=== PATIENT | female | born 1940 | race Caucasian/White ===

== ENCOUNTER 2022-02-10 23:26 | Observation (INO) ==
--- NOTE | 2022-02-10 23:52 | Emergency Department Note ---
History of Present Illness General Chief complaint: Chest Pain Stated complaint: HEART/CHEST PAIN Time Seen by Provider: 02/10/22 23:42 History of Present Illness Maximum Pain Intensity: 5 81-year-old female presents emergency department with heart pain that started earlier today. Patient states that the pain is located in the left side of her chest is nonradiating there is no associated shortness of breath nausea vomiting diaphoresis. Patient has taken aspirin prior to arrival. Patient states the pain is located in her heart is intermittent there is no significant shortness of breath. Patient states that she has a chronic cough which is unchanged. Patient denies hemoptysis. Patient denies any recent infections pneumonia or chest trauma. There are no current other mitigating or alleviating factors Home Medications Medication Instructions Recorded Confirmed Type metoprolol succinate 25 mg 25 mg PO QAM 10/04/19 02/11/22 History tablet,extended release 24 hr rosuvastatin 5 mg tablet 2.5 mg PO .3-4XSWEEK 10/04/19 02/11/22 History wheat dextrin 3 gram/3.5 gram oral 0 g PO DAILY PRN 10/04/19 02/11/22 History powder packet (Benefiber Clear Sugar Free(dextrin)) aspirin 81 mg tablet 81 mg PO DAILY 02/11/22 02/11/22 History chlorthalidone 25 mg tablet 25 mg PO QAM 02/11/22 02/11/22 History Allergies Allergy/AdvReac Type Severity Reaction Status Date / Time lisinopril AdvReac Unknown COUGH Verified 02/11/22 02:11 pravastatin AdvReac Unknown TIRED AND Verified 02/11/22 02:11 BODY ACHES Past Med/Surg History Medical History (Updated 02/11/22 @ 03:12 by Cipriano French DO) Hyperlipidemia Hypertension Osteoarthritis of left knee Surgical History No significant past surgical history Social History Smoking Status: Former smoker Preferred Language: German marital status: Current Living Situation: Spouse current occupational status: retired Feels Safe at Home: Yes Review of Systems A total of 10 systems reviewed and were otherwise negative Constitutional: no weakness Respiratory: + cough Cardiovascular: + chest pain Gastrointestinal: no abdominal pain Physical Exam Vital Signs Vital Signs - 24 hr 02/10/22 23:31 02/10/22 23:43 02/10/22 23:46 Temperature 36.9 C Temperature Source Temporal Artery Scan Pulse Rate 54 L 52 L 54 L Pulse Rate [Finger] Pulse Rate from SpO2 Sensor 54 L Pulse Rhythm [Finger] Respiratory Rate 16 19 21 Respiratory Effort / Characteristics Non-Labored Spontaneous Respiratory Depth Normal Respiratory Pattern Regular Blood Pressure 170/114 H 143/85 H Blood Pressure [Left Arm] Blood Pressure Mean 132 104 Blood Pressure Mean [Left Arm] Pulse Oximetry 94 94 Oxygen Delivery Method Room Air Sepsis Recent Fever Within 48 Hours No Sepsis New/Unexplained Change in Mental Status N/A Sepsis Action Taken by Nursing No Action Required 02/11/22 00:03 02/11/22 00:06 02/11/22 00:30 Temperature Temperature Source Oral Pulse Rate 46 L 48 L Pulse Rate [Finger] 49 L Pulse Rate from SpO2 Sensor 47 L 48 L Pulse Rhythm [Finger] Regular Respiratory Rate 15 14 17 Respiratory Effort / Characteristics Respiratory Depth Respiratory Pattern Blood Pressure Blood Pressure [Left Arm] 164/68 H Blood Pressure Mean Blood Pressure Mean [Left Arm] 100 Pulse Oximetry 94 94 92 Oxygen Delivery Method Room Air Sepsis Recent Fever Within 48 Hours Sepsis New/Unexplained Change in Mental Status Sepsis Action Taken by Nursing 02/11/22 02:21 Temperature Temperature Source Pulse Rate Pulse Rate [Finger] 74 Pulse Rate from SpO2 Sensor Pulse Rhythm [Finger] Respiratory Rate 14 Respiratory Effort / Characteristics Respiratory Depth Respiratory Pattern Blood Pressure Blood Pressure [Left Arm] 161/73 H Blood Pressure Mean Blood Pressure Mean [Left Arm] 102 Pulse Oximetry 95 Oxygen Delivery Method Sepsis Recent Fever Within 48 Hours Sepsis New/Unexplained Change in Mental Status Sepsis Action Taken by Nursing VITAL SIGNS - Vital signs and nursing notes were reviewed. GENERAL --81 year-old female who is in no acute distress. Communicates well with provider and answers questions appropriately. SKIN - Without rashes. HEAD - NC/AT. EYES - PERRL with EOMI bilaterally. Sclera anicteric. Palpebral conjunctiva pink and moist with no injection noted. EARS - No deformities of external structures noted on gross examination bilaterally. N NOSE - Midline and without cyanosis. No epistaxis or purulent drainage noted. Septum midline without deviation or septal hematoma noted. MOUTH/OROPHARYNX - Without perioral cyanosis. Buccal mucosa pink and moist NECK - Neck with FROM. Supple to palpation.. LUNGS - Chest wall symmetric without accessory muscle use, intercostals retractions, or central cyanosis. Normal vesicular breath sounds CTA B/L. No wheezes, rales, or rhonchi appreciated. CARDIAC - RRR with S1/S2. No murmur, rubs, or gallops appreciated. ABDOMEN - Abdominal contour soft without pulsations or visible masses. BS normoactive all four quadrants. No tenderness, palpable masses, hepatosplenomegaly, or ascites noted. EXTREMITIES - No clubbing or peripheral cyanosis. +5/5 strength noted in UE/LE bilaterally. NEUROLOGIC - Cranial nerves II through XII grossly intact. PSYCH - A&Ox3 and cooperates fully with examiner. Pt is very pleasant and interacts well with examiner. Course Reevaluation(s) Reevaluation #1: Patient is currently resting in no distress no chest pain at 12:40 AM. Patient has an elevated D-dimer. I have ordered a CT angio of her chest. Reevaluation #2: Patient's CT is negative for PE, 2:35 AM [facility] Administered Medications Discontinued Medications Ioversol (Optiray 320 125ml) 125 ml IV ONCE ONE Stop: 02/11/22 01:35 Last Admin: 02/11/22 01:34 Dose: 90 ml Documented by: [id number] Nitroglycerin (Nitroglycerin Sl 0.4 Mg/Tab Tab) Confirm Administered Dose 0.4 mg .ROUTE .STK-MED ONE Stop: 02/11/22 03:04 Last Admin: 02/11/22 03:06 Dose: 0.4 mg Documented by: [id number] Medical Decision Making Medical Records Attestation: I reviewed the patient's medical records. Laboratory Data Attestation: I reviewed the patient's lab results. Result diagrams: 02/10/22 23:47 02/10/22 23:47 Lab Results 02/10/22 02/10/22 02/10/22 Range/Units 23:47 23:47 23:47 WBC 7.30 (4.8-10.8) K/uL RBC 4.50 (4.2-5.4) M/uL Hgb 12.8 (12.0-16.0) g/dL Hct 38.9 (37-47) % MCV 86.4 (80-100) fL MCH 28.4 (25-34) pg MCHC 32.9 (32-36) g/dL RDW Std Deviation 40.5 (36.4-46.3) fL RDW Coeff of Kristi 12.7 (11.5-14.5) % Plt Count 258 (130-400) K/uL MPV 9.6 (7.4-10.4) fL Immature Gran % (Auto) 0.3 % Neut % (Auto) 60.2 % Lymph % (Auto) 23.4 % [place] % (Auto) 9.3 % Eos % (Auto) 6.4 % Baso % (Auto) 0.4 % Neut # (Auto) 4.39 (1.4-6.5) K/uL Lymph # (Auto) 1.71 (1.2-3.4) K/uL [place] # (Auto) 0.68 H (0.11-0.59) K/uL Eos # (Auto) 0.47 (0-0.5) K/uL Baso # (Auto) 0.03 (0-0.2) K/uL Immature Gran # (Auto) 0.02 (0.00-0.02) K/uL D-Dimer 1120 H* (0-500) ug/L FEU Sodium 139 (136-145) mmol/L Potassium 3.9 (3.5-5.1) mmol/L Chloride 103 (98-107) mmol/L Carbon Dioxide 27 (21-32) mmol/L Anion Gap 9 (3-11) BUN 28 H (6-23) mg/dl Creatinine 1.12 (0.6-1.2) mg/dl Est Cr Clr Drug Dosing 41.2 ml/min Est GFR ( Amer) 53.7 ml/min Est GFR (Non-Af Amer) 46.4 ml/min BUN/Creatinine Ratio 25.0 H (10-20) Glucose 104 H (70-99(Fasting)) mg/dl Calcium 8.7 (8.5-10.1) mg/dl Total Bilirubin 0.3 (0.2-1.0) mg/dl AST 17 (13-39) U/L ALT 11 (7-52) U/L Alkaline Phosphatase 70 (34-104) U/L Troponin I 0.04 (0-0.04) ng/ml Total Protein 6.9 (6.0-8.3) gm/dl Albumin 4.0 (3.4-5.0) gm/dl Globulin 2.9 (2.5-4.0) gm/dl Albumin/Globulin Ratio 1.4 (0.9-2) Lipase 113 H (11-82) U/L SARS-CoV-2, RNA, NAAT (NEGATIVE) 02/11/22 Range/Units 02:25 WBC (4.8-10.8) K/uL RBC (4.2-5.4) M/uL Hgb (12.0-16.0) g/dL Hct (37-47) % MCV (80-100) fL MCH (25-34) pg MCHC (32-36) g/dL RDW Std Deviation (36.4-46.3) fL RDW Coeff of Kristi (11.5-14.5) % Plt Count (130-400) K/uL MPV (7.4-10.4) fL Immature Gran % (Auto) % Neut % (Auto) % Lymph % (Auto) % [place] % (Auto) % Eos % (Auto) % Baso % (Auto) % Neut # (Auto) (1.4-6.5) K/uL Lymph # (Auto) (1.2-3.4) K/uL [place] # (Auto) (0.11-0.59) K/uL Eos # (Auto) (0-0.5) K/uL Baso # (Auto) (0-0.2) K/uL Immature Gran # (Auto) (0.00-0.02) K/uL D-Dimer (0-500) ug/L FEU Sodium (136-145) mmol/L Potassium (3.5-5.1) mmol/L Chloride (98-107) mmol/L Carbon Dioxide (21-32) mmol/L Anion Gap (3-11) BUN (6-23) mg/dl Creatinine (0.6-1.2) mg/dl Est Cr Clr Drug Dosing ml/min Est GFR ( Amer) ml/min Est GFR (Non-Af Amer) ml/min BUN/Creatinine Ratio (10-20) Glucose (70-99(Fasting)) mg/dl Calcium (8.5-10.1) mg/dl Total Bilirubin (0.2-1.0) mg/dl AST (13-39) U/L ALT (7-52) U/L Alkaline Phosphatase (34-104) U/L Troponin I (0-0.04) ng/ml Total Protein (6.0-8.3) gm/dl Albumin (3.4-5.0) gm/dl Globulin (2.5-4.0) gm/dl Albumin/Globulin Ratio (0.9-2) Lipase (11-82) U/L SARS-CoV-2, RNA, NAAT NEGATIVE (NEGATIVE) Imaging Data Attestation: I personally reviewed and interpreted this imaging study as follows: My Impression: Chest x-ray interpreted by me negative for infiltrate normal mediastinum no pneumothorax Radiologist's Impression: CTACHEST: Respiratorymotion limits evaluation of smaller subsegmental branches. No evidence of pulmonaryembolismwithin the pulmonaryoutflowtract or proximal v essels. Dependent atelectasis. Mild peripheral interstitial opacities. Cardiomegaly. Hiatal hernia. Radiologist: eBn Estrada MD ECG Data Attestation: I personally reviewed and interpreted this ECG as follows: Additional Comments: EKG interpreted by me sinus bradycardia rate of 52 incomplete right bundle branch block no obvious ST segment elevation or depression normal axis MDM Narrative Medical decision making differential diagnosis includes angina, unstable angina, acute NE, pulmonary embolism, pneumonia, pleurisy Impression & Plan Chest pain Discharge Plan Visit Data Chief Complaint: Chest Pain Stated Complaint: HEART/CHEST PAIN ED Provider: Cipriano French Discharge Problem: Chest pain Patient Disposition: Being Evaluated by Hospitalist Forms Stand Alone Forms: My [facility] Prescriptions Prescriptions: No Action metoprolol succinate 25 mg tablet extended release 24 hr 25 mg PO QAM RF: 0 rosuvastatin 5 mg tablet 2.5 mg PO .3-4XSWEEK RF: 0 Benefiber Clear SF (dextrin) 3 gram/3.5 gram Powder In Packet 0 g PO DAILY PRN (Reason: Constipation) RF: 0 Low-Dose Aspirin 81 mg Tablet 81 mg PO DAILY RF: 0 chlorthalidone 25 mg tablet 25 mg PO QAM RF: 0 Referrals Referrals: Yessica Cooper DO [Primary Care Provider] -
[2022-02-10 23:54] LABS: Basophils # (auto) 0.03 K/uL (0-0.2); Basophils % (auto) 0.4 %; Eosinophils # (auto) 0.47 K/uL (0-0.5); Eosinophils % (auto) 6.4 %; Hematocrit (blood only) 38.9 % (37-47); Hemoglobin 12.8 g/dL (12.0-16.0); Immature Granulocytes # (auto) 0.02 K/uL (0.00-0.02); Immature Granulocytes % (auto) 0.3 %; Lymphocytes # (auto) 1.71 K/uL (1.2-3.4); Lymphocytes % (auto) 23.4 %; Mean Corpuscular Hemoglobin 28.4 pg (25-34); Mean Corpuscular Hgb Conc 32.9 g/dL (32-36); Mean Corpuscular Volume 86.4 fL (80-100); Mean Platelet Volume 9.6 fL (7.4-10.4); Monocytes # (auto) 0.68 K/uL (0.11-0.59); Monocytes % (auto) 9.3 %; Neutrophils # (auto) 4.39 K/uL (1.4-6.5); Neutrophils % (auto) 60.2 %; Platelet Count 258 K/uL (130-400); RDW Coefficient of Variation 12.7 % (11.5-14.5); RDW Standard Deviation 40.5 fL (36.4-46.3)
[2022-02-11 00:22] LABS: Troponin I 0.04 ng/ml (0-0.04)
[2022-02-11 00:29] LABS: D Dimer 1120 ug/L FEU (0-500)
[2022-02-11 00:46] LABS: Albumin Globulin Ratio 1.4 (0.9-2); Bilirubin,Total 0.3 mg/dl (0.2-1.0); Calcium 8.7 mg/dl (8.5-10.1); Creatinine Clr Calc Pharmacy 41.2 ml/min; Est GFR (African American) 53.7 ml/min; Est GFR (Non-African American) 46.4 ml/min; Globulin 2.9 gm/dl (2.5-4.0); Potassium 3.9 mmol/L (3.5-5.1); Total Protein 6.9 gm/dl (6.0-8.3)
[2022-02-11] MEDS ORDERED: OPTIRAY 320 125ml IV ONE (01:34)
[2022-02-11] MEDS ORDERED: METOPROLOL SUCC 25MG EXT REL TAB PO STA (02:34)
[2022-02-11] MEDS ORDERED: NITROGLYCERIN SL 0.4 MG/TAB TAB SL STA (02:57)
[2022-02-11] MEDS ORDERED: LOSARTAN POTASSIUM 25 MG TAB PO STA (02:58)
[2022-02-11] MEDS ORDERED: NITROGLYCERIN SL 0.4 MG/TAB TAB ONE (03:03)
[2022-02-11 03:16] LABS: Partial Thromboplastin Ratio 0.9; Partial Thromboplastin Time 25.4 Seconds (21.0-31.0)
--- NOTE | 2022-02-11 03:18 | History & Physical Report ---
Date of Service February 11, 2022 Assessment & Plan (1) Chest pain: Plan: Possibly from uncontrolled hypertension secondary to anxiety from personal stressors. Rule out ACS given nitro relief and risk factors for ischemic heart disease Abnormal TSH, possible hypothyroidism hyperlipidemia on statin Rx prediabetes, hemoglobin A1c of 6.02 September 2021 OBS PCU Add losartan to her regimen given episodic bradycardia on low-dose maintenance beta-inocente home Rx Anxiolytic as needed Continue home aspirin for CAD prevention until ACS ruled out Follow troponin TTE, Cardiology consult Re: Chest pain N.p.o. until patient seen by cardiology in a.m. anticipation of procedure Follow TFTs Update hemoglobin A1c DVT prophylaxis. Lovenox subcu Full code Text document was generated using [email or web address] voice recognition software. It may contain grammatical or spelling errors. Kindly contact undersigned for clarification of any documentation item in question. History of Present Illness Chief Complaint: Chest pain Primary Care Provider: Yessica Cooper, History obtained from patient, family, and records. Medical history significant for hypertension, hyperlipidemia, GERD, prediabetes, past tobacco abuse. Yesterday morning, patient noted achy left-sided chest pain, nonradiating and without other associated symptoms. Chronic cough symptoms which patient attributes to sinus congestion/allergies. Admits to a lot of family stressors. Patient does not check blood pressure at home. No headache complaints. Denies dietary indiscretion. No OTC NSAID intake. Patient brought to ER by due to persistent chest discomfort. SBP 190s at the ER at one point. Chest pain improved with nitroglycerin administration at the ER. Medical History as above Surgical History : Cataract surgeries, vaginal hysterectomy, oophorectomy, tonsillectomy, cholecystectomy, pelvic laparoscopy Family History : Heart disease, throat cancer, stroke Personal/Social history : Past tobacco abuse, no EtOH intake, retired hospital employee Allergies Allergy/AdvReac Type Severity Reaction Status Date / Time lisinopril AdvReac Unknown COUGH Verified 02/11/22 02:11 pravastatin AdvReac Unknown TIRED AND Verified 02/11/22 02:11 BODY ACHES Home Medications Medication Instructions Recorded Confirmed Type metoprolol succinate 25 mg 25 mg PO QAM 10/04/19 02/11/22 History tablet,extended release 24 hr rosuvastatin 5 mg tablet 2.5 mg PO .3-4XSWEEK 10/04/19 02/11/22 History wheat dextrin 3 gram/3.5 gram oral 0 g PO DAILY PRN 10/04/19 02/11/22 History powder packet (Benefiber Clear Sugar Free(dextrin)) aspirin 81 mg tablet 81 mg PO DAILY 02/11/22 02/11/22 History chlorthalidone 25 mg tablet 25 mg PO QAM 02/11/22 02/11/22 History Past Med/Surg History Medical History (Updated 02/11/22 @ 03:12 by Cipriano French DO) Hyperlipidemia Hypertension Osteoarthritis of left knee Surgical History No significant past surgical history Social History Smoking Status: Former smoker Second Hand Exposure: Yes; Do You Dip or Chew Tobacco: No; Hx Alcohol Use: No Hx Substance Use: No Preferred Language: Greenlandic Communication Ability: Effective Flash Oven Operator Required: No Beliefs That Will Affect Care: Sabianist Sabianist Beliefs: Spiritism marital status: Current Living Situation: Spouse current occupational status: retired Other Information That Helps Us Care for You: No Feels Safe at Home: Yes Safety Concerns: Feels Safe At This Time Assistive Devices: Denture - Upper, Denture - Lower and Glasses Review of Systems Review of Systems: As per HPI, all 10 systems reviewed, all other ROS negative Physical Exam Physical Exam: GENERAL: Comfortable, pleasant, slightly hard of hearing, obese, no respiratory distress SKIN: Normal color, warm HEENT: [place] palpebral conjunctivae, no ptosis, moist buccal mucosa NECK : Supple, no tenderness CHEST : CTA, no tenderness HEART : Bradycardic, no obvious murmurs ABDOMEN: Some distention, nontender EXTREMITIES : Minimal LE swelling, no LE tenderness, no other conspicuous deformities noted NEUROLOGIC : Coherent, no facial asymmetry, no other gross focality Results & Data Results & Data ([facility]) Vital Signs (Past 12 Hours) Vital Signs Temp Pulse Pulse Resp BP BP Pulse Ox 02/11/22 02:21 74 14 161/73 H 95 02/11/22 00:30 48 L 17 92 02/11/22 00:06 49 L 14 164/68 H 94 02/11/22 00:03 46 L 15 94 02/10/22 23:46 54 L 21 143/85 H 94 02/10/22 23:43 52 L 19 02/10/22 23:31 36.9 C 54 L 16 170/114 H 94 Laboratory Results Laboratory Results WBC 7.30 K/uL (4.8-10.8) 02/10/22 23:47 RBC 4.50 M/uL (4.2-5.4) 02/10/22 23:47 Hgb 12.8 g/dL (12.0-16.0) 02/10/22 23:47 Hct 38.9 % (37-47) 02/10/22 23:47 MCV 86.4 fL (80-100) 02/10/22 23:47 MCH 28.4 pg (25-34) 02/10/22 23:47 MCHC 32.9 g/dL (32-36) 02/10/22 23:47 RDW Std Deviation 40.5 fL (36.4-46.3) 02/10/22 23:47 RDW Coeff of Kristi 12.7 % (11.5-14.5) 02/10/22 23:47 Plt Count 258 K/uL (130-400) 02/10/22 23:47 MPV 9.6 fL (7.4-10.4) 02/10/22 23:47 Immature Gran % (Auto) 0.3 % 02/10/22 23:47 Neut % (Auto) 60.2 % 02/10/22 23:47 Lymph % (Auto) 23.4 % 02/10/22 23:47 [place] % (Auto) 9.3 % 02/10/22 23:47 Eos % (Auto) 6.4 % 02/10/22 23:47 Baso % (Auto) 0.4 % 02/10/22 23:47 Neut # (Auto) 4.39 K/uL (1.4-6.5) 02/10/22 23:47 Lymph # (Auto) 1.71 K/uL (1.2-3.4) 02/10/22 23:47 [place] # (Auto) 0.68 K/uL (0.11-0.59) H 02/10/22 23:47 Eos # (Auto) 0.47 K/uL (0-0.5) 02/10/22 23:47 Baso # (Auto) 0.03 K/uL (0-0.2) 02/10/22 23:47 Immature Gran # (Auto) 0.02 K/uL (0.00-0.02) 02/10/22 23:47 APTT 25.4 Seconds (21.0-31.0) 02/11/22 02:58 PTT Ratio 0.9 02/11/22 02:58 D-Dimer 1120 ug/L FEU (0-500) H* 02/10/22 23:47 Sodium 139 mmol/L (136-145) 02/10/22 23:47 Potassium 3.9 mmol/L (3.5-5.1) 02/10/22 23:47 Chloride 103 mmol/L (98-107) 02/10/22 23:47 Carbon Dioxide 27 mmol/L (21-32) 02/10/22 23:47 Anion Gap 9 (3-11) 02/10/22 23:47 BUN 28 mg/dl (6-23) H 02/10/22 23:47 Creatinine 1.12 mg/dl (0.6-1.2) 02/10/22 23:47 Est Cr Clr Drug Dosing 41.2 ml/min 02/10/22 23:47 Est GFR ( Amer) 53.7 ml/min 02/10/22 23:47 Est GFR (Non-Af Amer) 46.4 ml/min 02/10/22 23:47 BUN/Creatinine Ratio 25.0 (10-20) H 02/10/22 23:47 Glucose 104 mg/dl (70-99(Fasting)) H 02/10/22 23:47 Calcium 8.7 mg/dl (8.5-10.1) 02/10/22 23:47 Total Bilirubin 0.3 mg/dl (0.2-1.0) 02/10/22 23:47 AST 17 U/L (13-39) 02/10/22 23:47 ALT 11 U/L (7-52) 02/10/22 23:47 Alkaline Phosphatase 70 U/L (34-104) 02/10/22 23:47 Troponin I 0.04 ng/ml (0-0.04) 02/10/22 23:47 Total Protein 6.9 gm/dl (6.0-8.3) 02/10/22 23:47 Albumin 4.0 gm/dl (3.4-5.0) 02/10/22 23:47 Globulin 2.9 gm/dl (2.5-4.0) 02/10/22 23:47 Albumin/Globulin Ratio 1.4 (0.9-2) 02/10/22 23:47 Lipase 113 U/L (11-82) H 02/10/22 23:47 SARS-CoV-2, RNA, NAAT NEGATIVE (NEGATIVE) 02/11/22 02:[address] chest initial read: Respiratorymotion limits evaluation of smaller subsegmental branches. No evidence of pulmonaryembolismwithin the pulmonaryoutflowtract or proximal vessels. Dependent atelectasis. Mild peripheral interstitial opacities. Cardiomegaly. Hiatal hernia. EKG as per my interpretation: Rate 50, sinus bradycardia, normal axis, incomplete RBBB, T wave abnormality septal leads (1) Chest pain Chest pain type: unspecified Qualified Code(s): R07.9 - Chest pain, unspecified
[2022-02-11 03:33] LABS: Troponin I 0.04 ng/ml (0-0.04)
[2022-02-11 03:34] LABS: Magnesium 1.6 mg/dl (1.7-2.4)
[2022-02-11] MEDS ORDERED: MAGNESIUM SULFATE / D5W 1 GM/100 ML BAG IV ONE ×2 (03:49→09:30)
[2022-02-11] MEDS ORDERED: LACTATED RINGER'S 1,000 ML IV ONE (03:56)
[2022-02-11 04:48] LABS: Thyroid Stimulating Hormone 8.718 uIu/ml (0.300-4.500)
[2022-02-11] MEDS ORDERED: ACETAMINOPHEN 325 MG TAB PO PRN (05:45)
[2022-02-11] MEDS ORDERED: NITROGLYCERIN SL 0.4 MG/TAB TAB SL PRN (05:45)
[2022-02-11] MEDS ORDERED: PROMETHAZINE HCL 12.5 MG in SODIUM CHLORIDE 0.9% 50 ML IV PRN (05:45)
[2022-02-11] MEDS ORDERED: MoRPHine SULFATE 2 MG/ML CARP IV PRN (05:45)
[2022-02-11] MEDS ORDERED: LORazepam 2 MG/1 ML VIAL IV PRN (05:45)
[2022-02-11] MEDS ORDERED: traMADol HCL 50 MG TABLET PO PRN (05:45)
[2022-02-11 06:02] LABS: T4 Free Thyroxine 0.77 ng/dl (0.61-1.60)
--- NOTE | 2022-02-11 06:44 | XRay Report ---
XR chest 1V portable HISTORY: 81 years-old Female Chest Pain acute atypical chest pain COMPARISON: CTA chest of same day TECHNIQUE: Portable AP view of the chest FINDINGS: The cardiac silhouette is enlarged. Ill-defined airspace opacities of the right upper lobe. Mild inte rstitial coarsening of the lung bases suggest atelectasis. No pneumothorax, pleural effusion or overt pulmonary edema. Degenerative changes of the shoulders and spine. IMPRESSION: 1. Cardiac megaly without pulmonary edema. 2. Ill-defined airspace opacities of the right upper lobe are likely infectious or inflammatory. ACT 112: Negative or not required by law. The above report was generated using voice recognition software. It may contain grammatical, syntax o r spelling errors. Electronically signed by: Vinny Gilliland M.D. 02/11/2022 6:43 AM
--- NOTE | 2022-02-11 07:20 | CT Scan Report ---
CT ANGIOGRAPHY OF THE CHEST, PULMONARY EMBOLUS PROTOCOL CLINICAL HISTORY: Shortness of breath. Atypical chest pain. COMPARISON STUDY: Chest radiograph February 10, 2022. TECHNIQUE: Following IV administration of 90 mL of Optiray, helical axial images of the chest were ob tained utilizing the pulmonary embolus protocol. Maximal intensity projections and sagittal and fernie nal reformats were viewed on an independent 3D workstation. IV contrast was administered without com plication. Automated exposure control was utilized for the study. A dose lowering technique was uti lized adhering to the principles of ALARA. CT DOSE: 324.51 mGy.cm FINDINGS: No pulmonary emboli are identified. There is no thoracic aortic dissection. Mild cardiomeg ayaz is noted. There is no pericardial effusion. No enlarged axillary, mediastinal or hilar lymph node s are present. There is moderate coronary artery calcification. No pneumothorax or pleural effusion. Note is made of several small peripheral airspace opacities within the right upper lobe. There is mil d subpleural peripheral groundglass opacity within the lungs. Mild mosaic attenuation is noted. There is no consolidation. Central airways are patent. No acute fracture or suspicious lesion within the v isualized bony thorax is noted. Small hiatal hernia is present. Visualized portions of the upper abdo men are unremarkable. IMPRESSION: 1. No pulmonary emboli identified. 2. Scattered small airspace opacities within the right upper lobe and mild subpleural groundglass opa cities within the lungs. The findings are nonspecific but may favor an infectious process. 3. Mild mosaic attenuation within the lungs. This may reflect air trapping. 4. Cardiomegaly. 5. Small hiatal hernia. ACT 112: Negative or not required by law. Electronically signed by: Ji Sheridan M.D. 02/11/2022 7:18 AM
[2022-02-11 08:38] LABS: Estimated Average Glucose 137 mg/dl; Hemoglobin A1C 6.4 % (4.5-5.6)
[2022-02-11] MEDS ORDERED: METOPROLOL SUCC 25MG EXT REL TAB PO SCH (09:00)
[2022-02-11] MEDS ORDERED: ENOXAPARIN INJ 40 MG/0.4 ML SYR SQ SCH (09:00)
[2022-02-11] MEDS ORDERED: ASPIRIN 81 MG ECTAB PO SCH (09:00)
--- NOTE | 2022-02-11 09:33 | Cardiology Consultation ---
Date of Consultation February 11, 2022 Assessment & Plan (1) Chest pain at rest: (2) Hypertensive urgency: (3) Dyslipidemia: (4) HTN (hypertension): (5) Bradycardia: Atypical chest pain. Troponin negative. EKG without acute changes. Resting echocardiography pending. Suspect multifactorial etiology - hypertensive urgency secondary to recent significant stressors, possible GERD component. Patient does have multiple risk factors (hypertension, dyslipidemia, former tobacco use, prediabetes, obesity, sedentary state) with moderate coronary artery calcification noted on chest CT this admission. RECOMMENDATIONS: Await resting echocardiography Outpatient exercise stress testing if resting echocardiography is OK, after appropriate blood pressure control. Lexiscan declined. Would avoid DSE due to BP. Agree with reduction of metoprolol dosing due to mild asymptomatic bradycardia. Agree with addition of losartan; titrate as needed for additional blood pressure control If blood pressure remains elevated despite the above, add low-dose amlodipine next for the isolated systolic hypertension Increase rosuvastatin to daily, targeting an optimal LDL cholesterol goal of less than 70 mg/deciliter. Continue primary prevention aspirin 81 mg/day Supervising Physician Co-Signing Physician Notes I have seen and examined the patient. I reviewed her echocardiogram well it was being completed in the room. I reviewed the medical record and discussed the case with Mr. Esparza. I agree with his plan as outlined above. The patient requires no additional in-hospital cardiac testing and can be discharged from cardiology standpoint. History of Present Illness Reason for Consultation: Chest pain Requesting Physician: Linnea Attending Physician: Stan History of Present Illness Mrs. Lisandra Delacruz is an 81 year old female who presented to the [facility] emergency room in the evening of February 10, 2022 for evaluation of chest discomfort. She is notably a reformed smoker with prediabetes, hypertension, and dyslipidemia. Patient denies prior cardiac history; she specifically denies history of CAD, OH, CHF, arrhythmia, heart murmur, rheumatic fever, or scarlet fever. The patient awoke yesterday morning with "a pain in my heart." She describes waxing and waning chest discomfort, a dull ache, that would last for up to 10 seconds, reoccurring every 1/2 hour or throughout the day. She notes cleaning, running the sweeper, and doing errands without aggravation of the discomfort. She notes eating dinner with her around 5 PM with transient improvement when eating. Around 8 PM last night the discomfort returned and seemed to be more intense, now 5-6 out of 10, which prompted her to report to the emergency room for further evaluation. EKG on presentation revealed sinus bradycardia at 52 bpm with an incomplete right bundle branch block, without acute ST segment change. When compared to the prior EKG dated September 13, 2020, no significant change noted. Troponin 0.04 ->0.04->0.03. Resting echocardiography has yet to be completed. An elevated D- dimer led to a CT scan of the chest which showed no evidence of PE. Scattered small airspace opacities were noted within the right upper lobe with mild subpleural groundglass opacities within both lungs, favoring an infectious process. Moderate coronary artery calcification observed along with a small hiatal hernia. Blood pressure was markedly elevated on presentation. Patient notes significant stressors in her life of late (daughter recently left her . Son-in-law last week at the age of 60. A great granddaughter just found out she has multiple sclerosis. Another granddaughter was just diagnosed with migraines and ? seizures). Continuous telemetry monitoring reveals sinus/si nus bradycardia with heart rates down to 48 bpm. No significant pauses or tachyarrhythmias. Allergies Allergy/AdvReac Type Severity Reaction Status Date / Time lisinopril AdvReac Unknown COUGH Verified 02/11/22 02:11 pravastatin AdvReac Unknown TIRED AND Verified 02/11/22 02:11 BODY ACHES Home Medications Medication Instructions Recorded Confirmed Type metoprolol succinate 25 mg 25 mg PO QAM 10/04/19 02/11/22 History tablet,extended release 24 hr rosuvastatin 5 mg tablet 2.5 mg PO .3-4XSWEEK 10/04/19 02/11/22 History wheat dextrin 3 gram/3.5 gram oral 0 g PO DAILY PRN 10/04/19 02/11/22 History powder packet (Benefiber Clear Sugar Free(dextrin)) aspirin 81 mg tablet 81 mg PO DAILY 02/11/22 02/11/22 History chlorthalidone 25 mg tablet 25 mg PO QAM 02/11/22 02/11/22 History Patient History Medical History (Updated 02/11/22 @ 10:03 by Azar Esparza) Hyperlipidemia Hypertension Osteoarthritis of left knee Surgical History No significant past surgical history Social History Smoking Status: Former smoker Second Hand Exposure: Yes; Do You Dip or Chew Tobacco: No; Hx Alcohol Use: No Hx Substance Use: No Preferred Language: Samoan Communication Ability: Effective Out Of School Hours Care Worker Required: No Beliefs That Will Affect Care: Moravian Moravian Beliefs: Sabianist marital status: Current Living Situation: Spouse current occupational status: retired How many Children do You have: 3 Other Information That Helps Us Care for You: No Feels Safe at Home: Yes Safety Concerns: Feels Safe At This Time Assistive Devices: None Review of Systems Review of Systems: Unvaccinated against Covid-19 Chronic sinus issues. Chronic cough Prior cough with lisinopril Taking 1/2 tablet of rosuvastatin 3 days per week, afraid of potential issues. Prediabetic . Reformed smoker, quit 40 years ago. No alcohol. No illegal drug use. Complete review of systems is otherwise as stated above, negative, noncontributory. Physical Exam Physical Exam: General: A&Ox3. NAD. HENT: Normocephalic. Atraumatic. Eyes: PER. Conjunctiva pink, sclera clear. Neck: No carotid bruits. No JVD. No HJR. Heart: Regular at 52 bpm. No murmur. No rub. No gallop. PMI is nondisplaced. Lungs: Clear to auscultation. Abdomen: +BS. Soft. Nontender. No masses or organomegaly. Extremities: Trivial edema. No clubbing. No cyanosis. Limited neurological examination is without focal deficits. Pulses: radial=2/4, posterior tibial=2/4 on the right, 1/4 on the left. Results & Data ([facility]) Vital Signs (Past 12 Hours) Vital Signs Temp Pulse Pulse Resp BP BP Pulse Ox 02/11/22 07:11 36.4 C L 50 L 19 161/72 H 93 02/11/22 05:25 64 02/11/22 05:23 36.5 C 53 L 16 149/78 H 91 02/11/22 05:10 53 L 18 02/11/22 05:00 51 L 18 137/67 98 02/11/22 04:50 57 L 19 03/15/22 04:40 51 L 18 02/11/22 04:30 52 L 19 146/77 H 02/11/22 04:20 63 18 02/11/22 04:10 52 L 17 02/11/22 04:00 53 L 13 144/65 H 02/11/22 03:50 56 L 19 02/11/22 03:40 53 L 20 02/11/22 03:30 61 22 125/72 02/11/22 03:20 62 23 02/11/22 03:10 68 18 02/11/22 03:01 48 L 14 155/89 H 94 02/11/22 03:00 51 L 19 91 02/11/22 02:50 51 L 18 92 02/11/22 02:40 50 L 18 93 02/11/22 02:32 55 L 21 192/71 H 92 02/11/22 02:30 58 L 20 92 02/11/22 02:26 65 13 02/11/22 02:21 74 14 161/73 H 95 02/11/22 02:01 53 L 19 161/73 H 02/11/22 02:00 53 L 18 02/11/22 01:50 54 L 18 02/11/22 01:40 55 L 22 02/11/22 01:30 66 17 188/93 H 02/11/22 01:29 69 19 02/11/22 00:50 49 L 17 93 02/11/22 00:40 50 L 18 94 02/11/22 00:30 48 L 17 92 02/11/22 00:06 49 L 14 164/68 H 94 02/11/22 00:03 46 L 15 94 02/10/22 23:46 54 L 21 143/85 H 94 02/10/22 23:43 52 L 19 02/10/22 23:31 36.9 C 54 L 16 170/114 H 94 Laboratory Results Laboratory Results - last 24 hr 02/10/22 02/10/22 02/10/22 23:44 23:47 23:47 WBC 7.30 RBC 4.50 Hgb 12.8 Hct 38.9 MCV 86.4 MCH 28.4 MCHC 32.9 RDW Std Deviation 40.5 RDW Coeff of Kristi 12.7 Plt Count 258 MPV 9.6 Immature Gran % (Auto) 0.3 Neut % (Auto) 60.2 Lymph % (Auto) 23.4 [place] % (Auto) 9.3 Eos % (Auto) 6.4 Baso % (Auto) 0.4 Neut # (Auto) 4.39 Lymph # (Auto) 1.71 [place] # (Auto) 0.68 H Eos # (Auto) 0.47 Baso # (Auto) 0.03 Immature Gran # (Auto) 0.02 APTT PTT Ratio D-Dimer Sodium 139 Potassium 3.9 Chloride 103 Carbon Dioxide 27 Anion Gap 9 BUN 28 H Creatinine 1.12 Est Cr Clr Drug Dosing 41.2 Est GFR ( Amer) 53.7 Est GFR (Non-Af Amer) 46.4 BUN/Creatinine Ratio 25.0 H Glucose 104 H POC Glucose Estimat Average Glucose Hemoglobin A1c Calcium 8.7 Magnesium Total Bilirubin 0.3 AST 17 ALT 11 Alkaline Phosphatase 70 Troponin I 0.04 Total Protein 6.9 Albumin 4.0 Globulin 2.9 Albumin/Globulin Ratio 1.4 Lipase 113 H TSH 8.718 H Free T4 0.77 SARS-CoV-2, RNA, NAAT 02/10/22 02/11/22 02/11/22 23:47 02:25 02:58 WBC RBC Hgb Hct MCV MCH MCHC RDW Std Deviation RDW Coeff of Kristi Plt Count MPV Immature Gran % (Auto) Neut % (Auto) Lymph % (Auto) [place] % (Auto) Eos % (Auto) Baso % (Auto) Neut # (Auto) Lymph # (Auto) [place] # (Auto) Eos # (Auto) Baso # (Auto) Immature Gran # (Auto) APTT 25.4 PTT Ratio 0.9 D-Dimer 1120 H* Sodium Potassium Chloride Carbon Dioxide Anion Gap BUN Creatinine Est Cr Clr Drug Dosing Est GFR ( Amer) Est GFR (Non-Af Amer) BUN/Creatinine Ratio Glucose POC Glucose Estimat Average Glucose Hemoglobin A1c Calcium Magnesium Total Bilirubin AST ALT Alkaline Phosphatase Troponin I Total Protein Albumin Globulin Albumin/Globulin Ratio Lipase TSH Free T4 SARS-CoV-2, RNA, NAAT NEGATIVE 02/11/22 02/11/22 02/11/22 02:58 07:28 07:44 WBC RBC Hgb Hct MCV MCH MCHC RDW Std Deviation RDW Coeff of Kristi Plt Count MPV Immature Gran % (Auto) Neut % (Auto) Lymph % (Auto) [place] % (Auto) Eos % (Auto) Baso % (Auto) Neut # (Auto) Lymph # (Auto) [place] # (Auto) Eos # (Auto) Baso # (Auto) Immature Gran # (Auto) APTT PTT Ratio D-Dimer Sodium Potassium Chloride Carbon Dioxide Anion Gap BUN Creatinine Est Cr Clr Drug Dosing Est GFR ( Amer) Est GFR (Non-Af Amer) BUN/Creatinine Ratio Glucose POC Glucose 98 Estimat Average Glucose 137 Hemoglobin A1c 6.4 H Calcium Magnesium 1.6 L Total Bilirubin AST ALT Alkaline Phosphatase Troponin I 0.04 Total Protein Albumin Globulin Albumin/Globulin Ratio Lipase TSH Free T4 SARS-CoV-2, RNA, NAAT 02/11/22 07:44 WBC RBC Hgb Hct MCV MCH MCHC RDW Std Deviation RDW Coeff of Kristi Plt Count MPV Immature Gran % (Auto) Neut % (Auto) Lymph % (Auto) [place] % (Auto) Eos % (Auto) Baso % (Auto) Neut # (Auto) Lymph # (Auto) [place] # (Auto) Eos # (Auto) Baso # (Auto) Immature Gran # (Auto) APTT PTT Ratio D-Dimer Sodium Potassium Chloride Carbon Dioxide Anion Gap BUN Creatinine Est Cr Clr Drug Dosing Est GFR ( Amer) Est GFR (Non-Af Amer) BUN/Creatinine Ratio Glucose POC Glucose Estimat Average Glucose Hemoglobin A1c Calcium Magnesium Total Bilirubin AST ALT Alkaline Phosphatase Troponin I 0.03 Total Protein Albumin Globulin Albumin/Globulin Ratio Lipase TSH Free T4 SARS-CoV-2, RNA, NAAT
--- NOTE | 2022-02-11 15:00 | Discharge Summary ---
Date of Service February 11, 2022 Admission HPI Per Admitting Provider History obtained from patient, family, and records. Medical history significant for hypertension, hyperlipidemia, GERD, prediabetes, past tobacco abuse. Yesterday morning, patient noted achy left-sided chest pain, nonradiating and without other associated symptoms. Chronic cough symptoms which patient attributes to sinus congestion/allergies. Admits to a lot of family stressors. Patient does not check blood pressure at home. No headache complaints. Denies dietary indiscretion. No OTC NSAID intake. Patient brought to ER by due to persistent chest discomfort. SBP 190s at the ER at one point. Chest pain improved with nitroglycerin administration at the ER. Medical History as above Surgical History : Cataract surgeries, vaginal hysterectomy, oophorectomy, tonsillectomy, cholecystectomy, pelvic laparoscopy Family History : Heart disease, throat cancer, stroke Personal/Social history : Past tobacco abuse, no EtOH intake, retired hospital employee Admission Exam Per Admitting Provider GENERAL: Comfortable, pleasant, slightly hard of hearing, obese, no respiratory distress SKIN: Normal color, warm HEENT: [place] palpebral conjunctivae, no ptosis, moist buccal mucosa NECK : Supple, no tenderness CHEST : CTA, no tenderness HEART : Bradycardic, no obvious murmurs ABDOMEN: Some distention, nontender EXTREMITIES : Minimal LE swelling, no LE tenderness, no other conspicuous deformities noted NEUROLOGIC : Coherent, no facial asymmetry, no other gross focality Principal Diagnosis Atypical chest pain. Discharge Exam GENERAL: Alert and oriented x3. NAD, on RA. HEENT: No pallor, no icterus. Pupils equal, round and reactive to light. Oral mucosa moist. NECK: No JVD, no neck masses. HEART: S1 and S2 heard. Regular rate and rhythm. No murmur, no gallop. RESPIRATORY SYSTEM: Normal AP diameter. No accessory muscle use. No wheezing, no crackles. ABDOMEN: Soft, bowel sounds present, nontender, no distention. CENTRAL NERVOUS SYSTEM: No facial droop. Speech is clear. Obeys simple commands. Moves extremities. EXTREMITIES: trace BLE edema, no erythema seen. Discharge Data Allergies Allergy/AdvReac Type Severity Reaction Status Date / Time lisinopril AdvReac Unknown COUGH Verified 02/11/22 02:11 pravastatin AdvReac Unknown TIRED AND Verified 02/11/22 02:11 BODY ACHES Consultations 02/11/22 02:39 ED Decision to Admit Stat 02/11/22 05:45 Consult Cardiology Routine Ordered Studies 02/11/22 00:32 CT angio chest PE protocol Urgent Hospital Course (1) Hypertensive urgency: (2) Chest pain at rest: 81-year-old lady with PMH of GERD, hypertension, hyperlipidemia, prediabetes and past tobacco abuse presented to our ED 02/10 with complaint of left-sided achy chest pain. Troponin trends were negative. EKG at admission with no acute ST or T changes but showed sinus bradycardia. Echo was done and reviewed and WNL with ejection fraction of 60 to 65% and normal left ventricular function and size. Cardiology evaluated, metoprolol dose has been reduced for concerns of sinus bradycardia, losartan has been added for uncontrolled blood pressure. Cardiology ok with DC from their POV. Blood pressure being better controlled with medication adjustment. On lab, your TSH was elevated at around 8, advise to repeat thyroid function test in 3 to 6 months time and follow-up with your primary care physician. Follow-up with cardiology as an outpatient for stress test test. Following instructions were communicated to the patient at the point of discharge: Follow-up with your PCP within a week time. Follow-up with your cardiology as an outpatient for a stress test. You have been admitted for chest pain, your heart enzymes trends were negative, you underwent echo which was normal, cardiology evaluated and recommended outpatient stress test, advised to maintain follow-up with cardiology. Your cardiac medications has been changed, get your blood work CMP done in a week time upon discharge. Your metoprolol dose has been reduced this admission due to ongoing symptomatic bradycardia. Your rosuvastatin has been increased to daily, new medication losartan has been added for your blood pressure control. Continue with baby aspirin daily. As discussed at the bedside, maintain your blood pressure log by measuring blood pressure at least 2 times a day to take it to your primary care physician/cardiology for further assessment/evaluation of your blood pressure. Your thyroid function test was abnormal in this admission, you are not on any thyroid medication, follow-up with your PCP as an outpatient for possible repeat thyroid function test in 3 to 6 months and evaluation for management of hypothyroidism. Take your medications as prescribed. Total Time Total Time Spent Total Time Spent (In Minutes): 35 Discharge Plan Discharge Items Patient Disposition: Home - Self-Care Reason For Visit: CHEST PAIN Discharge Diagnosis: Atypical chest pain Activity: Resume your previous activity Non-emergency contact: Primary Care Provider Call non-emergency contact if: you have any medication questions, your symptoms worsen, your pain is not controlled and your temperature is above 101 Follow-up/Referrals: Yessica Cooper DO [Primary Care Provider] - (Date & Time 02/18/2022 3:00 PM Provider Yessica Cooper DO Department [facility] ) Diet: Heart Healthy Addtl Attending Provider Instructions: Follow-up with your PCP within a week time. Follow-up with your cardiology as an outpatient for a stress test. You have been admitted for chest pain, your heart enzymes trends were negative, you underwent echo which was normal, cardiology evaluated and recommended outpatient stress test, advised to maintain follow-up with cardiology. Your cardiac medications has been changed, get your blood work CMP done in a week time upon discharge. Your metoprolol dose has been reduced this admission due to ongoing symptomatic bradycardia. Your rosuvastatin has been increased to daily, new medication losartan has been added for your blood pressure control. Continue with baby aspirin daily. As discussed at the bedside, maintain your blood pressure log by measuring blood pressure at least 2 times a day to take it to your primary care physician/cardiology for further assessment/evaluation of your blood pressure. Your thyroid function test was abnormal in this admission, you are not on any thyroid medication, follow-up with your PCP as an outpatient for possible repeat thyroid function test in 3 to 6 months and evaluation for management of hypothyroidism. Take your medications as prescribed. Pending Studies at Discharge: No Stand-Alone Forms: My [facility] [employer], Smoking Cessation Medications and DC Order Prescriptions: New metoprolol succinate 25 mg Tablet Extended Release 24 Hr 12.5 mg PO QAM Qty: 15 RF: 0 losartan 25 mg Tablet 25 mg PO QAM Qty: 30 RF: 0 rosuvastatin [Crestor] 5 mg Tablet 2.5 mg PO DAILY Qty: 15 RF: 0 Continued Benefiber Clear SF (dextrin) 3 gram/3.5 gram Powder In Packet 0 g PO DAILY PRN (Reason: Constipation) RF: 0 Low-Dose Aspirin 81 mg Tablet 81 mg PO DAILY RF: 0 chlorthalidone 25 mg tablet 25 mg PO QAM RF: 0 Discontinued metoprolol succinate 25 mg tablet extended release 24 hr 25 mg PO QAM RF: 0 rosuvastatin 5 mg tablet 2.5 mg PO .3-4XSWEEK RF: 0 Discharge Orders: Discharge Order (Routine); Ordered 02/11/22 Ordered By: Brandy Toth/Other Patient Handouts: Prediabetes Admission Data Admit Date/Time: 02/11/22 03:51 Attending Provider: Brandy Pierce Admit Provider: Adonay Yarbrough Primary Care Provider: Yessica Cooper Other Providers: Adonay Yarbrough ; Cipriano Ahumada ; Tk Arvizu ; Pasha Mohr ; Sami Schmitt ; Nazario De Jesus ; Azar Esparza ; Nolvia Nicole ; Renuka Lanier ; Janie Leal ; Antelmo Valiente
--- NOTE | 2022-02-12 06:12 | Electrocardiogram Report ---
Test Reason : Blood Pressure : / mmHG Vent. Rate : 052 BPM Atrial Rate : 052 BPM P-R Int : 134 ms QRS Dur : 100 ms QT Int : 448 ms P-R-T Axes : 035 004 056 degrees QTc Int : 416 ms Sinus bradycardia Incomplete right bundle branch block Borderline ECG No previous ECGs available Confirmed by Arvin Philippe ([id number]) on 02/12/2022 6:11:54 AM Referred By: REFERRED SELF Confirmed By:Arvin Philippe
[2022-02-12] MEDS ORDERED: ROSUVASTATIN CALCIUM 5 MG TAB PO SCH (09:00)
[2022-02-12] MEDS ORDERED: LOSARTAN POTASSIUM 25 MG TAB PO SCH (09:00)
== END 2022-02-11 15:51 | disposition home or self-care (01) ==
LOC: ED 23:26 → 2S 23:26

== ENCOUNTER 2025-11-12 12:33 | Observation (INO) ==
[2025-11-12 13:26] LABS: Hematocrit (blood only) 35.8 % (37.0-47.0); Hemoglobin 12.0 g/dL (12.0-16.0); Immature Granulocytes # (auto) 0.02 K/uL (0.01-0.20); Immature Granulocytes % (auto) 0.3 %; Mean Corpuscular Hemoglobin 28.7 pg (25.0-34.0); Mean Corpuscular Volume 85.6 fL (80.0-100.0); Platelet Count 240 K/uL (130-400); RDW Standard Deviation 37.9 fL (36.4-46.3); Red Blood Count 4.18 M/uL (4.20-5.40); White Blood Count 6.27 K/ul (4.8-10.8)
--- NOTE | 2025-11-12 13:30 | XRay Report ---
Exam: AP Portable Chest Exam reason: Hypertension Comparison: 10/19/2023 Technique: A single AP portable view of the chest was obtained Findings: The lungs are well-expanded. No focal areas of consolidation are identified. The cardiac and mediastinal silhouettes are within normal limits. There is no pneumothorax and no acute bony abnormalities are seen. Impression: No acute cardiopulmonary abnormalities Electronically signed by Montez Fleming 11-12-2025 13:30 PM
[2025-11-12 13:42] LABS: Alanine Aminotransferase 12.0 U/L (7-52); Albumin Globulin Ratio 1.4 (0.9-2); Albumin Level 4.2 gm/dl (3.4-5.0); Alkaline Phosphatase 76.0 U/L (34-104); Anion Gap 7.0 (3-11); Bilirubin,Total 0.3 mg/dl (0.2-1.0); Blood Urea Nitrogen 26.0 mg/dl (6-23); Calcium 9.4 mg/dl (8.6-10.3); Carbon Dioxide 31.0 mmol/L (21-32); Chloride 102.0 mmol/L (98-107); Creatinine Clr Calc Pharmacy 44.0 ml/min; Globulin 3.1 gm/dl (2.5-4.0); Glucose 81.0 mg/dl (70-99(Fasting)); Potassium 3.9 mmol/L (3.5-5.1); Sodium 140.0 mmol/L (136-145); Total Protein 7.3 gm/dl (6.0-8.3)
--- NOTE | 2025-11-12 13:46 | Emergency Department Note ---
Impression & Plan Hypertension, Neck pain ED Provider Note CHIEF COMPLAINT: Hypertension HISTORY OF PRESENT ILLNESS: This 85-year-old female patient presents to the emergency department via private vehicle for evaluation of hypertension. The patient states she has noticed her blood pressure being more more elevated over the past month. She was seen by cardiology and states her losartan was doubled to 50 mg twice daily. She states that this does not seem to have helped and she continues to notice her blood pressure being elevated. Today, she woke up with some neck stiffness and noticed her blood pressure was over 200 systolic, so decided come to the emergency department for evaluation. Patient denies any chest pain or difficulty breathing. She denies any visual disturbances. No numbness or tingling. No nausea or vomiting. The patient denies any abdominal pain. No other associated symptoms. History provided by: Patient REVIEW OF SYSTEMS: A 10 system review of systems was performed with positives and pertinent negatives listed in the history of present illness. All other systems were reviewed and are negative. ALLERGIES: Lisinopril, atorvastatin, pravastatin, Zocor PHYSICAL EXAM: VITALS: Vitals are noted on the nurse's note and reviewed by myself. GENERAL: This is an 85 year old female, in no acute distress, nondiaphoretic, well-developed well-nourished. SKIN: The skin was without rashes, erythema, edema, or bruising. There is no tenting of the skin. Capillary refill less than 2 seconds. HEAD: Normocephalic atraumatic. EARS: Negative Sutherland's sign. EYES: Pupils equal round and reactive to light and accommodation. Conjunctivae without injection, sclerae without icterus. Extraocular movements intact. NOSE: Patent, turbinates without inflammation or discharge. No sinus tenderness. MOUTH: Mucous membranes moist. Tonsils are not enlarged. Pharynx without erythema or exudate. Uvula midline. Airway patent. Tongue does not deviate. NECK: Supple without nuchal rigidity. No lymphadenopathy. Cervical spine is nontender. No JVD. No Bruits HEART: Regular rate and rhythm without murmurs gallops or rubs. LUNGS: Clear to auscultation bilaterally without wheezes, rales or rhonchi. No retractions or accessory muscle use. ABDOMEN: Positive bowel sounds x 4. Soft, nontender, without masses or organomegaly. No guarding or rebound tenderness. MUSCULOSKELETAL: No muscle atrophy, erythema, or edema noted. Full range of motion without joint tenderness in all extremities. No tenderness to palpation. Normal gait. Strength 5/5 throughout. NEURO: Patient was alert and oriented to person place and time. Normal sensation to light and sharp touch. No focal neurological deficits. An order was placed for continuous engine monitor. The monitor showed a sinus bradycardia at a ventricular rate of 53 bpm, per my interpretation. EKG was reviewed by myself and found to be sinus bradycardia at a rate of 54 beats per minute and per my interpretation reveals no ST elevation or depression. No T wave inversion. And when compared to previous EKG of 10/19/2023 is without significant change Imaging as interpreted by myself and the radiologist revealed no acute findings, with radiologist interpretation as above. I agree with the radiologist's findings as based upon my independent interpretation. EMERGENCY DEPARTMENT COURSE: The patient was evaluated as above. The patient presents to the emergency department for hypertension. This been ongoing for about a month. Today, she noticed it to be greater than 200 systolic and became concerned so came to the emergency department. IV access was obtained, labs were drawn. CT of the head and x-ray of the chest were completed and reviewed by myself radiologist as noted. Labs reviewed. Per my interpretation, no leukocytosis or concerning anemia. No thrombocytopenia. Renal, hepatic function and electrolytes without significant abnormality. Troponin 3.4. TSH 2.63. Urinalysis with negative for blood or evidence of infection. Case was discussed with the attending physician. Patient was medicated with IV hydralazine. On reevaluation, the patient did not experience improvement in the blood pressure. She was given a second dose of antihypertensive. Recommended admission due to the patient's persistent hypertension. The patient is agreeable. I discussed case with Dr. Desai. He did agree to evaluate the patient. Please see [facility] dictation regarding ongoing management and final disposition of this patient. I attest that I have personally reviewed the patient medication list. I attest that I have reviewed the patient's blood pressure and it was found to be elevated. Further management by hospitalist GCS: 15 In the evaluation and treatment of this patient the following differential diagnoses were entertained: Benign hypertension, hypertensive emergency, cardiovascular pathology, toxicologic, pheochromocytoma, electrolyte abnormality, renal disease, endorgan damage, as well as other pathologies. The chart was completed utilizing Dragon Speech voice recognition software. Grammatical errors, random word insertions, pronoun errors, and incomplete sentences are an occasional consequence of this system due to software limitations, ambient noise, and hardware issues. Any formal questions or concerns about the content, text, or information contained within the body of this dictation should be directly addressed to the provider for clarification. 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- wear O2 NC at night- follows with pulm at [facility], operated by [facility] Rectocele states came back after surgery History of anesthesia reaction [facility]- woke up "shaking" after rectocele surgery- reports she had to have "tylenol put through my IV" no fever, states she was not admitted to the hospital Hx of colonic polyps Bradycardia hx- per chart -pt denies- follows with [facility] ([place]) Hypertension Hyperlipidemia Osteoarthritis of left knee Surgical History History of basal cell carcinoma (BCC) excision History of repair of rectocele (2022) Hx of colonoscopy with polypectomy History of tonsillectomy History of hysterectomy History of cholecystectomy History of appendectomy History of tooth extraction Family History Sister Colon cancer Social History Smoking Status: Never smoker Second Hand Exposure: No; Do You Dip or Chew Tobacco: No; Hx Alcohol Use: No Hx Substance Use: No Preferred Language: Hungarian Communication Ability: Effective Boulevard Glassware Replacer Required: No Beliefs That Will Affect Care: Restorationist Restorationist Beliefs: protestant marital status: Current Living Situation: Spouse Current Living Situation Comment: house with current occupational status: retired How many Children do You have: 3 Feels Safe at Home: Yes Safety Concerns: Feels Safe At This Time Assistive Devices: Denture - Upper, Denture - Lower and Hearing Aid - Right Allergies Allergies Allergy/AdvReac Type Severity Reaction Status Date / Time lisinopril AdvReac Intermediate COUGH Verified 09/05/25 14:30 atorvastatin AdvReac Mild decreased Verified 09/05/25 14:30 energy pravastatin AdvReac Mild TIRED AND Verified 09/05/25 14:30 BODY ACHES simvastatin [From Zocor] AdvReac Mild Muscle Pain Verified 09/05/25 14:30 Home Meds Home Medications Medication Instructions Recorded Confirmed chlorthalidone 25 mg tablet 25 mg PO QAM 02/11/22 11/12/25 aspirin 81 mg tablet,delayed 81 mg PO QAM 10/19/23 11/12/25 release clobetasol 0.05 % topical ointment 1 applic topical DIRECTED PRN .. 10/19/23 11/12/25 docusate sodium 100 mg capsule 100 mg PO BID 10/19/23 11/12/25 escitalopram oxalate 20 mg tablet 20 mg PO QAM 10/19/23 11/12/25 fluticasone propionate 50 2 spray intranasal BID PRN 10/19/23 11/12/25 mcg/actuation nasal allergies spray,suspension (Flonase Allergy Relief) omeprazole 40 mg capsule,delayed 40 mg PO QAM 10/19/23 11/12/25 release polyethylene glycol 3350 17 gram 8.5 g PO BID 10/19/23 11/12/25 oral powder packet (Miralax) escitalopram oxalate 10 mg tablet 10 mg PO QAM 05/31/25 11/12/25 hydroxyzine HCl 10 mg tablet 10 mg PO Q8 PRN Anxiety 09/05/25 11/12/25 magnesium 200 mg tablet 400 mg PO 3XWK 09/05/25 11/12/25 montelukast 10 mg tablet 10 mg PO HS 09/05/25 11/12/25 levothyroxine 75 mcg tablet 75 mcg PO DAILYBB 11/12/25 11/12/25 losartan 50 mg tablet 50 mg PO AMHS 11/12/25 11/12/25 rosuvastatin 5 mg tablet 5 mg PO 3XWK 11/12/25 11/12/25 Results & Data (ED) Vital Signs Vital Signs - 24 hr 11/12/25 12:39 11/12/25 13:07 11/12/25 13:08 Temperature 36.5 C Temperature Source Temporal Artery Scan Pulse Rate 63 Pulse Rate [Apical] 48 L Pulse Rhythm [Apical] Regular Pulse Strength [Apical] Normal Respiratory Rate 19 16 Respiratory Effort / Characteristics Non-Labored Spontaneous Respiratory Depth Normal Respiratory Pattern Regular Blood Pressure 203/81 H Blood Pressure [Right Arm] 180/76 H Blood Pressure Mean 121 Blood Pressure Mean [Right Arm] 110 Blood Pressure Position [Right Arm] Pulse Oximetry 93 94 93 Oxygen Delivery Method Room Air Room Air Room Air Sepsis Recent Fever Within 48 Hours No Sepsis New/Unexplained Change in Mental Status N/A Sepsis Action Taken by Nursing No Action Required 11/12/25 13:26 11/12/25 14:50 11/12/25 15:01 Temperature Temperature Source Pulse Rate 53 L Pulse Rate [Apical] 55 L 56 L Pulse Rhythm [Apical] Pulse Strength [Apical] Respiratory Rate 20 20 Respiratory Effort / Characteristics Non-Labored Spontaneous Non-Labored Spontaneous Respiratory Depth Normal Normal Respiratory Pattern Regular Regular Blood Pressure Blood Pressure [Right Arm] 192/84 H 219/104 H Blood Pressure Mean Blood Pressure Mean [Right Arm] 120 142 Blood Pressure Position [Right Arm] Sitting Sitting Pulse Oximetry 93 96 Oxygen Delivery Method Room Air Room Air Sepsis Recent Fever Within 48 Hours Sepsis New/Unexplained Change in Mental Status Sepsis Action Taken by Nursing 11/12/25 15:47 Temperature Temperature Source Pulse Rate Pulse Rate [Apical] 55 L Pulse Rhythm [Apical] Pulse Strength [Apical] Respiratory Rate 18 Respiratory Effort / Characteristics Non-Labored Spontaneous Respiratory Depth Normal Respiratory Pattern Regular Blood Pressure Blood Pressure [Right Arm] 189/83 H Blood Pressure Mean Blood Pressure Mean [Right Arm] 118 Blood Pressure Position [Right Arm] Pulse Oximetry 98 Oxygen Delivery Method Room Air Sepsis Recent Fever Within 48 Hours Sepsis New/Unexplained Change in Mental Status Sepsis Action Taken by Nursing Laboratory Data 11/12/25 12:56 11/12/25 12:56 Lab Results 11/12/25 11/12/25 Range/Units 12:56 14:59 WBC 6.27 (4.8-10.8) K/ul RBC 4.18 L (4.20-5.40) M/uL Hgb 12.0 (12.0-16.0) g/dL Hct 35.8 L (37.0-47.0) % MCV 85.6 (80.0-100.0) fL MCH 28.7 (25.0-34.0) pg MCHC 33.5 (32.0-36.0) g/dL RDW Std Deviation 37.9 (36.4-46.3) fL RDW Coeff of Kristi 12.2 (11.5-14.5) % Plt Count 240 (130-400) K/uL MPV 9.1 L (9.4-12.4) fL Immature Gran % (Auto) 0.3 % Neut % (Auto) 64.5 % Lymph % (Auto) 19.6 % Barnwell % (Auto) 9.9 % Eos % (Auto) 4.9 % Baso % (Auto) 0.8 % Neut # (Auto) 4.04 (1.40-6.50) K/uL Lymph # (Auto) 1.23 (1.20-3.40) K/uL Barnwell # (Auto) 0.62 H (0.11-0.59) K/uL Eos # (Auto) 0.31 (0.00-0.50) K/uL Baso # (Auto) 0.05 (0.00-0.20) K/uL Immature Gran # (Auto) 0.02 (0.01-0.20) K/uL Sodium 140 (136-145) mmol/L Potassium 3.9 (3.5-5.1) mmol/L Chloride 102 (98-107) mmol/L Carbon Dioxide 31 (21-32) mmol/L Anion Gap 7 (3-11) BUN 26 H (6-23) mg/dl Creatinine 0.94 (0.6-1.2) mg/dl Est Cr Clr Drug Dosing 44.0 ml/min eGFR 59.83 BUN/Creatinine Ratio 27.7 H (10-20) Glucose 81 (70-99(Fasting)) mg/dl Calcium 9.4 (8.6-10.3) mg/dl Total Bilirubin 0.3 (0.2-1.0) mg/dl AST 22 (13-39) U/L ALT 12 (7-52) U/L Alkaline Phosphatase 76 (34-104) U/L Troponin I High Sens 8.4 (0-14) pg/ml Total Protein 7.3 (6.0-8.3) gm/dl Albumin 4.2 (3.4-5.0) gm/dl Globulin 3.1 (2.5-4.0) gm/dl Albumin/Globulin Ratio 1.4 (0.9-2) TSH 2.683 (0.300-4.500) uIu/ml Urine Color Yellow Urine Appearance Clear (Clear) Urine pH 7.0 (4.5-7.5) Ur Specific Ayr 1.010 (1.000-1.030) Urine Protein Negative (Negative) Urine Glucose (UA) Negative (Negative) Urine Ketones Negative (Negative) Urine Blood Negative (Negative) Urine Nitrite Negative (Negative) Urine Bilirubin Negative (Negative) Urine Urobilinogen Negative (Negative) Ur Leukocyte Esterase Negative (Negative) Urine Comment Administered Medications Discontinued Medications Amlodipine Besylate (Amlodipine Besylate 5 Mg Tab) 5 mg PO NOW ONE Stop: 11/12/25 16:46 Last Admin: 11/12/25 17:25 Dose: 5 mg Documented By: JOYA Hydralazine HCl (Hydralazine Hcl 20 Mg/Ml Vial) 10 mg IV NOW STA Stop: 11/12/25 15:04 Last Admin: 11/12/25 15:22 Dose: Not Given Documented By: JOYA Hydralazine HCl (Hydralazine Hcl 20 Mg/Ml Vial) 5 mg IV NOW ONE Stop: 11/12/25 15:12 Last Admin: 11/12/25 15:25 Dose: 5 mg Documented By: JOYA Hydralazine HCl (Hydralazine Hcl 20 Mg/Ml Vial) 5 mg IV NOW ONE Stop: 11/12/25 16:20 Last Admin: 11/12/25 16:22 Dose: 5 mg Documented By: JOYA Imaging Data Radiologist's Impression: Chest X-Ray 11/12/25 13:08 Exam: AP Portable Chest Exam reason: Hypertension Comparison: 10/19/2023 Technique: A single AP portable view of the chest was obtained Findings: The lungs are well-expanded. No focal areas of consolidation are identified. The cardiac and mediastinal silhouettes are within normal limits. There is no pneumothorax and no acute bony abnormalities are seen. Impression: No acute cardiopulmonary abnormalities Electronically signed by Montez Fleming 11-12-2025 13:[address] 11/12/25 13:09 Exam: CT of the head without contrast. Exam reason: Hypertension. Comparison: No prior examinations available for comparison. Technique: Multiple sequential contiguous slices through the calvarium were obtained. Findings: The ventricles are normal in size and configuration. There is no evidence of intracranial hemorrhage, mass effect or midline shift. No acute bony abnormalities are identified. The sinuses are clear. The orbits and orbital contents are unremarkable. Impression: 1. No evidence of acute intracranial abnormality. Electronically signed by Montez Fleming 11-12-2025 2:03 PM Discharge Plan Visit Data Chief Complaint: Hypertension Stated Complaint: HIGH BP ED Provider: Ortiz Santos ED Midlevel Provider: Anayeli Davey Discharge Problem: Hypertension, Neck pain Patient Disposition: Admitted As Inpatient Condition: Good Discharge Instructions Interventions: ED Discharge Assessment Last Done: 11/12/25 18:06
--- NOTE | 2025-11-12 14:03 | CT Scan Report ---
Exam: CT of the head without contrast. Exam reason: Hypertension. Comparison: No prior examinations available for comparison. Technique: Multiple sequential contiguous slices through the calvarium were obtained. Findings: The ventricles are normal in size and configuration. There is no evidence of intracranial hemorrhage, mass effect or midline shift. No acute bony abnormalities are identified. The sinuses are clear. The orbits and orbital contents are unremarkable. Impression: 1. No evidence of acute intracranial abnormality. Electronically signed by Montez Fleming 11-12-2025 2:03 PM
[2025-11-12 14:24] LABS: Thyroid Stimulating Hormone 2.683 uIu/ml (0.300-4.500)
[2025-11-12 15:12] LABS: Appearance Urine Clear (Clear); Glucose Urine UA Negative (Negative)
--- NOTE | 2025-11-12 17:37 | History & Physical Report ---
Date of Service November 12, 2025 Assessment & Plan (1) Hypertensive urgency: Plan: 85-year-old female with history of coronary disease, hypertension, dyslipidemia, other problems noted below presenting with elevated blood pressure associated with neck pain which was noted this morning. Hypertensive urgency Currently on losartan 50 mg twice a day and chlorthalidone 25 mg daily Given 2 doses of hydralazine IV 5 mg at the ER Initiate amlodipine 5 mg daily, May need additional dose this evening if blood pressure still elevated Blood pressure goal this evening around systolic 150s to 160s CT head: No acute process Troponin negative, EKG no ischemia Consult cardiology service other chronic medical conditions: Coronary artery disease Hypertension Dyslipidemia Interstitial lung disease GERD Depression/anxiety Hypothyroidism - Continue usual medications DVT prophylaxis SCDs until blood pressure is under control DNR as per patient and daughter at the bedside Disposition Admit to PCU Total time spent 45 minutes including discussion with ER provider, outpatient inpatient records review, history taking physical examination, Formulation of plan of care, etc. plan of care discussed with patient and family at bedside in detail and at length all questions answered they are understanding, agreeable, comfortable with the plan of care History of Present Illness Chief Complaint: Elevated blood pressure with neck pain Noted this morning Primary Care Provider: HILDA Bailey 85-year-old female with history of coronary disease, hypertension, dyslipidemia, other problems noted below presenting with elevated blood pressure associated with neck pain which was noted this morning. Patient follows with [facility] cardiology service and was advised to increase her losartan to 50 mg twice a day a few weeks ago for blood pressure control. Patient performs home monitoring of blood pressure and she describes the readings to be up and down. This morning, the patient woke up with mild neck pain radiating to the back of her head and when she checked her blood pressure it was systolic 200s. She also reports a very mild frontal headache, but no dizziness, blurring of vision, nausea vomiting, chest pain, shortness of breath. at the ER, blood pressure upon arrival was 203/81 heart rate 63. she was given 2 doses of IV hydralazine with minimal improvement to 189/83 with a heart rate of 55. CT head: No acute process Troponin negative EKG no signs of acute ischemia or infarct On my exam, patient seen resting up in bed, sitting up, very pleasant, comfortable Neck pain seems to be improving but blood pressure still elevated No other acute symptoms Allergies Allergy/AdvReac Type Severity Reaction Status Date / Time lisinopril AdvReac Intermediate COUGH Verified 09/05/25 14:30 atorvastatin AdvReac Mild decreased Verified 09/05/25 14:30 energy pravastatin AdvReac Mild TIRED AND Verified 09/05/25 14:30 BODY ACHES simvastatin [From Zocor] AdvReac Mild Muscle Pain Verified 09/05/25 14:30 Home Medications Medication Instructions Recorded Confirmed Type chlorthalidone 25 mg tablet 25 mg PO QAM 02/11/22 11/12/25 History aspirin 81 mg tablet,delayed 81 mg PO DAILY 10/19/23 11/12/25 History release clobetasol 0.05 % topical ointment 1 applic topical DIRECTED PRN .. 10/19/23 11/12/25 History docusate sodium 100 mg capsule 100 mg PO BID 10/19/23 11/12/25 History escitalopram oxalate 20 mg tablet 20 mg PO QAM 10/19/23 11/12/25 History fluticasone propionate 50 2 spray intranasal BID PRN 10/19/23 11/12/25 History mcg/actuation nasal allergies spray,suspension (Flonase Allergy Relief) omeprazole 40 mg capsule,delayed 40 mg PO QAM 10/19/23 11/12/25 History release polyethylene glycol 3350 17 gram 8.5 g PO BID 10/19/23 11/12/25 History oral powder packet (Miralax) escitalopram oxalate 10 mg tablet 10 mg PO QAM 05/31/25 11/12/25 History hydroxyzine HCl 10 mg tablet 10 mg PO Q8 PRN Anxiety 09/05/25 11/12/25 History magnesium 200 mg tablet 400 mg PO 3XWK 09/05/25 11/12/25 History montelukast 10 mg tablet 10 mg PO HS 09/05/25 11/12/25 History levothyroxine 75 mcg tablet 75 mcg PO DAILYBB 11/12/25 11/12/25 History losartan 50 mg tablet 50 mg PO AMHS 11/12/25 11/12/25 History rosuvastatin 5 mg tablet 5 mg PO QAM 11/12/25 11/12/25 History Past Med/Surg History Problem List (Updated 11/12/25 @ 17:20 by Anayeli Davey PA-C) Neck pain (Acute) Hypertension (Acute) Colon cancer screening Encounter for pre-operative examination Bradycardia HTN (hypertension) Dyslipidemia Hypertensive urgency Chest pain at rest Chest pain (Acute) Medical History Hypothyroidism Anxiety and depression Constipation Seasonal allergies Hx of basal cell carcinoma x3 on hands CKD (chronic kidney disease), stage III follows with neph [facility] 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 as a child- wear O2 NC at night- follows with pulm at [facility] Rectocele states came back after surgery History of anesthesia reaction [facility]- woke up "shaking" after rectocele surgery- reports she had to have "tylenol put through my IV" no fever, states she was not admitted to the hospital Hx of colonic polyps Bradycardia hx- per chart -pt denies- follows with [facility] ([place]) Hypertension Hyperlipidemia Osteoarthritis of left knee Surgical History History of basal cell carcinoma (BCC) excision History of repair of rectocele (2022) Hx of colonoscopy with polypectomy History of tonsillectomy History of hysterectomy History of cholecystectomy History of appendectomy History of tooth extraction Family History Sister Colon cancer Social History Smoking Status: Never smoker Second Hand Exposure: No; Do You Dip or Chew Tobacco: No; Hx Alcohol Use: No Hx Substance Use: No Preferred Language: Irish Communication Ability: Effective Hotel Assistant General Manager Required: No Beliefs That Will Affect Care: None marital status: Current Living Situation: Spouse current occupational status: retired How many Children do You have: 3 Feels Safe at Home: Yes Assistive Devices: Denture - Upper, Denture - Lower, Glasses, Hearing Aid - Bilateral and Oxygen - at Night Review of Systems Review of Systems: all noted and negative except for above Physical Exam Physical Exam: General- oriented x 3, not in distress, speaks in sentences with no effort or accessory muscle use Head- atraumatic Eyes- PERRL, EOMI, anicteric ENT- oropharynx clear Neck- supple, no JVD, no adenopathy, no thyromegaly; carotids +2/2, no bruits appreciated Lungs- clear to auscultation bilaterally, no rales/wheezes Heart- normal rate, regular rhythm; no murmur, no gallop, no rub appreciated Abdomen- normal bowel sounds, nondistended, soft, nontender, no masses or hepatosplenomegaly Extremities- no pretibial edema, no calf tenderness; peripheral pulses intact Neuro- alert, oriented x 3; CN 2-12 grossly intact; motor 5/5 bilaterally;sensation 100% on all extremities; no other gross focal neurologic deficits Skin- warm & dry Results & Data Results & Data Vital Signs (Past 12 Hours) Vital Signs Temp Pulse Pulse Resp BP BP Pulse Ox 11/12/25 15:47 55 L 18 189/83 H 98 11/12/25 15:01 56 L 20 219/104 H 96 11/12/25 14:50 55 L 20 192/84 H 93 11/12/25 13:26 53 L 11/12/25 13:08 93 11/12/25 13:07 48 L 16 180/76 H 94 11/12/25 12:39 36.5 C 63 19 203/81 H 93 O2 Del Method 11/12/25 15:47 Room Air 11/12/25 15:01 Room Air 11/12/25 14:50 Room Air 11/12/25 13:26 11/12/25 13:08 Room Air 11/12/25 13:07 Room Air 11/12/25 12:39 Room Air all noted and reviewed including below
[2025-11-12] MEDS: POLYETHYLENE (MIRALAX) 17 GM PACK ONE (20:49)
[2025-11-12] MEDS: LOSARTAN POTASSIUM 50 MG TAB PO SCH (20:50)
[2025-11-12] MEDS: POLYETHYLENE (MIRALAX) 17 GM PACK PO SCH (20:51)
[2025-11-12] MEDS: MONTELUKAST SODIUM 10 MG TABLET PO SCH (20:51)
[2025-11-12] MEDS: DOCUSATE SODIUM 100 MG CAP PO SCH (21:41)
[2025-11-13 06:28] LABS: Hematocrit (blood only) 32.5 % (37.0-47.0); Hemoglobin 10.9 g/dL (12.0-16.0); Immature Granulocytes # (auto) 0.01 K/uL (0.01-0.20); Immature Granulocytes % (auto) 0.2 %; Mean Corpuscular Hemoglobin 28.8 pg (25.0-34.0); Mean Corpuscular Volume 85.8 fL (80.0-100.0); Platelet Count 222 K/uL (130-400); RDW Standard Deviation 38.5 fL (36.4-46.3); Red Blood Count 3.79 M/uL (4.20-5.40); White Blood Count 5.37 K/ul (4.8-10.8)
[2025-11-13 06:55] LABS: Alanine Aminotransferase 10.0 U/L (7-52); Albumin Globulin Ratio 1.4 (0.9-2); Albumin Level 3.7 gm/dl (3.4-5.0); Alkaline Phosphatase 67.0 U/L (34-104); Anion Gap 4.0 (3-11); Bilirubin,Total 0.6 mg/dl (0.2-1.0); Blood Urea Nitrogen 22.0 mg/dl (6-23); Calcium 9.3 mg/dl (8.6-10.3); Carbon Dioxide 34.0 mmol/L (21-32); Chloride 103.0 mmol/L (98-107); Creatinine Clr Calc Pharmacy 42.8 ml/min; Globulin 2.7 gm/dl (2.5-4.0); Glucose 92.0 mg/dl (70-99(Fasting)); Potassium 4.5 mmol/L (3.5-5.1); Sodium 141.0 mmol/L (136-145); Total Protein 6.4 gm/dl (6.0-8.3)
[2025-11-13] MEDS: CHLORTHALIDONE 25 MG TAB PO SCH (08:13)
[2025-11-13] MEDS: LEVOTHYROXINE SODIUM 75 MCG TABLET PO SCH (08:14)
[2025-11-13] MEDS: ROSUVASTATIN CALCIUM 5 MG TAB PO SCH (08:14)
[2025-11-13] MEDS: MAGNESIUM OXIDE 400 MG TAB PO SCH (08:14)
[2025-11-13] MEDS: ESCITALOPRAM OXALATE 20 MG TAB PO SCH (08:14)
[2025-11-13] MEDS: ESCITALOPRAM OXALATE 10 MG TAB PO SCH (08:14)
[2025-11-13] MEDS: ASPIRIN 81 MG ECTAB PO SCH (08:14)
--- NOTE | 2025-11-13 11:09 | Hospitalist Progress Note ---
Date of Service November 13, 2025 Assessment & Plan (1) Hypertensive urgency: Plan: 85-year-old female with history of coronary disease, hypertension, dyslipidemia, other problems noted below presenting with elevated blood pressure associated with headache #Hypertensive urgency -Currently on losartan 50 mg twice a day and chlorthalidone 25 mg daily -No s/s end organ damage -Started on norvasc 10mg yesterday -BP improved to 132/70 this AM Plan -Monitor BP for the day to ensure it doesn't drop -IF bp ok tomorrow, DC home with -Continue Losartan 50 BID, chlorthalidone 25mg daily and norvasc 10 other chronic medical conditions: Coronary artery disease Hypertension Dyslipidemia Interstitial lung disease GERD Depression/anxiety Hypothyroidism - Continue usual medications DVT prophylaxis SCDs until blood pressure is under control DNR as per patient and daughter at the bedside Disposition Admit to PCU Total time spent 45 minutes including discussion with ER provider, outpatient inpatient records review, history taking physical examination, Formulation of plan of care, etc. Admission and Anticipated Discharge Date Admission Date: November 12, 2025 Subjective Feeling well this AM. Patient denies F/C, CP, palpitations, SOB, dyspnea, abd pain, N/V/D. Denies JEFFERS vision changes. Some chronic neck pain but nothing new. d/w and daughter at bedside Physical Exam Physical Exam: Vitals and labs reviewed General: Well appearing, NAD HEENT: EOMI, PERRLA Neck: Supple Cardiac: RRR no rubs gallops or murmurs Lungs: CTA no rhonchi wheezing or rales Abd: S NT ND BS positive : Deffered MSK: Full ROM. No obvious deformities Ext: No Edema cyanosis Skin: Warm, Dry Neuro: AOx3 No focal deficits. Psych: Normal Mood Results & Data Results & Data Vital Signs (Past 12 Hours) Vital Signs Temp Pulse Pulse Resp BP Pulse Ox O2 Del Method 11/13/25 10:47 36.6 C 56 L 16 132/70 95 Room Air 11/13/25 08:13 123/70 11/13/25 07:00 36.4 C L 56 L 16 137/68 99 Room Air 11/13/25 04:03 36.5 C 55 L 18 147/77 H 95 Nasal Cannula O2 Flow Rate 11/13/25 10:47 11/13/25 08:13 11/13/25 07:00 11/13/25 04:03 2 Laboratory Results Abnormal lab results 11/12/25 11/13/25 Range/Units 12:56 06:04 RBC 4.18 L 3.79 L (4.20-5.40) M/uL Hgb 10.9 L (12.0-16.0) g/dL Hct 35.8 L 32.5 L (37.0-47.0) % MPV 9.1 L 9.3 L (9.4-12.4) fL Lymph # (Auto) 1.16 L (1.20-3.40) K/uL Reeves # (Auto) 0.62 H 0.63 H (0.11-0.59) K/uL Carbon Dioxide 34 H (21-32) mmol/L BUN 26 H (6-23) mg/dl BUN/Creatinine Ratio 27.7 H 22.7 H (10-20)
[2025-11-13] MEDS: ACETAMINOPHEN 325 MG TAB PO PRN (20:29)
[2025-11-13 22:30] VITALS: RESP 18
[2025-11-14 02:03] VITALS: O2SAT 96
[2025-11-14 09:21] VITALS: BP 119/69; TEMP 97.3
--- NOTE | 2025-11-14 09:28 | Discharge Summary ---
Discharge Summary Date of Service November 14, 2025 Principal Dx & Hospital Course #1 = Principal Diagnosis (1) Hypertensive urgency: 85-year-old female with history of coronary disease, hypertension, dyslipidemia, other problems noted below presenting with elevated blood pressure associated with headache. BP as high as 219/104 in the ED. No s/s end organ damage. she was started on norvasc 10mg on day of admission two days ago. She has been normotensive since then, BP today 119/69. She feels well and is asymptomatic today. She would like to go home. D/w yesterday and daughter today who agree wtih plan. She was advised to check her BP daily and follow the instructions provided documented below. Will give her norvasc two tabs 5mg in case she needs to decrease the dose at a later time. She is to f/u with her PCP in 1-2 weeks. #Hypertensive urgency -Currently on losartan 50 mg twice a day and chlorthalidone 25 mg daily -No s/s end organ damage -Started on norvasc 10mg yesterday -BP improved to 132/70 this AM Plan -Continue Losartan 50 BID, chlorthalidone 25mg daily and norvasc 10 other chronic medical conditions: Coronary artery disease Hypertension Dyslipidemia Interstitial lung disease GERD Depression/anxiety Hypothyroidism - Continue usual medications DVT prophylaxis SCDs until blood pressure is under control DNR as per patient and daughter at the bedside Disposition Admit to PCU Total time spent42 minutes including discussion with ER provider, outpatient inpatient records review, history taking physical examination, Formulation of plan of care, etc. Notes For Next Care Provider Medication Changes From Visit norvasc 10 mg added Admission HPI Per Admitting Provider 85-year-old female with history of coronary disease, hypertension, dyslipidemia, other problems noted below presenting with elevated blood pressure associated with neck pain which was noted this morning. Patient follows with [facility] cardiology service and was advised to increase her losartan to 50 mg twice a day a few weeks ago for blood pressure control. Patient performs home monitoring of blood pressure and she describes the readings to be up and down. This morning, the patient woke up with mild neck pain radiating to the back of her head and when she checked her blood pressure it was systolic 200s. She also reports a very mild frontal headache, but no dizziness, blurring of vision, nausea vomiting, chest pain, shortness of breath. at the ER, blood pressure upon arrival was 203/81 heart rate 63. she was given 2 doses of IV hydralazine with minimal improvement to 189/83 with a heart rate of 55. CT head: No acute process Troponin negative EKG no signs of acute ischemia or infarct On my exam, patient seen resting up in bed, sitting up, very pleasant, comfortable Neck pain seems to be improving but blood pressure still elevated No other acute symptoms Discharge Exam Vitals and labs reviewed General: Well appearing, NAD HEENT: EOMI, PERRLA Neck: Supple Cardiac: RRR no rubs gallops or murmurs Lungs: CTA no rhonchi wheezing or rales Abd: S NT ND BS positive : Deffered MSK: Full ROM. No obvious deformities Ext: No Edema cyanosis Skin: Warm, Dry Neuro: AOx3 No focal deficits. Psych: Normal Mood Updated Medication List Medication Instructions Recorded Confirmed Type chlorthalidone 25 mg tablet 25 mg PO QAM 02/11/22 11/12/25 History aspirin 81 mg tablet,delayed 81 mg PO QAM 10/19/23 11/12/25 History release clobetasol 0.05 % topical ointment 1 applic topical DIRECTED PRN .. 10/19/23 11/12/25 History docusate sodium 100 mg capsule 100 mg PO BID 10/19/23 11/12/25 History escitalopram oxalate 20 mg tablet 20 mg PO QAM 10/19/23 11/12/25 History fluticasone propionate 50 2 spray intranasal BID PRN 10/19/23 11/12/25 History mcg/actuation nasal allergies spray,suspension (Flonase Allergy Relief) omeprazole 40 mg capsule,delayed 40 mg PO QAM 10/19/23 11/12/25 History release polyethylene glycol 3350 17 gram 8.5 g PO BID 10/19/23 11/12/25 History oral powder packet (Miralax) escitalopram oxalate 10 mg tablet 10 mg PO QAM 05/31/25 11/12/25 History hydroxyzine HCl 10 mg tablet 10 mg PO Q8 PRN Anxiety 09/05/25 11/12/25 History magnesium 200 mg tablet 400 mg PO 3XWK 09/05/25 11/12/25 History montelukast 10 mg tablet 10 mg PO HS 09/05/25 11/12/25 History levothyroxine 75 mcg tablet 75 mcg PO DAILYBB 11/12/25 11/12/25 History losartan 50 mg tablet 50 mg PO AMHS 11/12/25 11/12/25 History rosuvastatin 5 mg tablet 5 mg PO 3XWK 11/12/25 11/12/25 History amlodipine 5 mg tablet 10 mg (2 x 5 mg) PO QAM 30 days 11/14/25 Rx #60 tabs Hospital Stay Data Consultations 11/12/25 16:46 ED Decision to Admit Stat Diagnostic Imagining Performed 11/12/25 13:09 CT head/brain wo con Stat Pending Results Patient Have Any Pending Studies at Discharge: No Discharge Instructions Given to Patient (Per Discharging Provider) Please check your BP every morning upon awakening and before you have any coffee. If either number is below 110/70, or you develop lightheadedness or diz ziness, stop taking the amlodipine and contact your PCP. If consistently above 150/100, notify your PCP. If above 180/110, sit down, and recheck your BP in 30 minutes. If it remains that high, return to ED. Total Time Total Time Spent Total Time Spent (In Minutes): 42
[2025-11-14 10:30] VITALS: PULSE 55
--- NOTE | 2025-11-15 05:56 | Electrocardiogram Report ---
Test Reason : Blood Pressure : */* mmHG Vent. Rate : 54 BPM Atrial Rate : 54 BPM P-R Int : 120 ms QRS Dur : 100 ms QT Int : 428 ms P-R-T Axes : 27 -2 74 degrees QTcB Int : 405 ms Sinus bradycardia Moderate voltage criteria for LVH, may be normal variant ( R in aVL , Sam product ) Incomplete right bundle branch block When compared with ECG of 19-Oct-2023 16:58, No significant change was found Confirmed by Arvin Philippe ([id number]) on 11/15/2025 5:56:23 AM Referred By: NO PCP Confirmed By: Arvin Philippe
== END 2025-11-14 10:30 | disposition home or self-care (01) ==
LOC: ED 12:33 → 2S 12:33 → SUATTDRO 16:49 → 2S 18:06